=== PATIENT | female | born 1960 ===

== ENCOUNTER 2020-10-27 07:15 | Day surgery (SDC) | payer MEDICARE ==
[2020-10-27] MEDS ORDERED: ZOLOFT25 MG PO (07:45)
[2020-10-27] MEDS ORDERED: ALPRAZOLAM OD0.25 MG PO (07:45)
[2020-10-27] MEDS ORDERED: OMEPRAZOLE20 MG PO (07:45)
[2020-10-27] MEDS ORDERED: VENTOLIN HFA18 GM INH (07:45)
--- NOTE | 2020-10-27 09:29 | NUR ---
10/27/20 0929 Ambreen Alvarado 0918- PT ARRIVES TO PACU AWAKE AND TALKING. PT REPORTS NO PAIN OR NAUSEA. RESP EVEN AND UNLABORED. OXYGEN SAT HIGH 90'S TO 100% ON 2L VIA NC. 0927- OXYGEN TITRATED OFF.
--- NOTE | 2020-10-29 11:54 | OR ---
[facility] [address] [place], [place] [address] Signed DATE OF OPERATION: 10/27/2020 SURGEON: David Freeman MD PREOPERATIVE DIAGNOSIS: Persistent severe diarrhea. POSTOPERATIVE DIAGNOSIS: Normal-appearing colon and distal terminal ileum. PROCEDURE: Total colonoscopy with multiple biopsies. ANESTHESIA: Intravenous sedation, fentanyl 200 mcg and Versed 10 mg. INDICATION: This 60-year-old white woman is a patient of Dr. Jose Hill of [place], [place]. The patient has had nearly a year of persistent rather severe diarrhea. Her stools are poorly formed, and essentially disabling in her day-to-day activities. She has no family history of colon problem specifically inflammatory bowel disease or colon cancer. She has tried Pepto-Bismol with no benefit. Her medications include dicyclomine, omeprazole for reflux, and sertraline. She was prescribed by ne loperamide 2 mg tablets two tablets p.o. b.i.d. more if necessary not to exceed 16 mg daily. This has been markedly helpful to her. She is admitted at this time to undergo colonoscopy to better characterize her problem. She understands the risks of bleeding, infection, perforation, and other unforeseen complications and wished to proceed. FINDINGS: The colon was normal as was the distal terminal ileum except for scattered diverticula of the sigmoid and left colon. These were small diverticula and there was no associated inflammation. She had no sign of neoplasm. Pathology for multiple biopsies is pending. DESCRIPTION OF PROCEDURE: The patient was brought to the endoscopy suite and placed in lateral decubitus position, given intravenous sedation to the point of slurred speech and nystagmus with full cardiopulmonary monitoring. Digital rectal examination was normal. An Olympus video colonoscope was passed in the rectum and manipulated throughout the colon noting diverticular change of the sigmoid and left colon. The scope was Electronically Signed By: DAVID FREEMAN MD 10/29/20 1154 PATIENT NAME: FAM BERUMEN OPERATIVE REPORT DATE OF : 64 REPORT #: [id number] PHYSICIAN: DAVID FREEMAN MD PCP: JOSE HILL MD REPORT IS CONFIDENTIAL AND NOT TO BE RELEASED WITHOUT AUTHORIZATION [facility] [address] [place], [place] [address] Signed ultimately advanced to the cecum. The ileocecal valve was identified and appeared normal overall. With various manipulations, the opening of the ileum could be evaluated, but true intubation of the ileum was not forthcoming. The biopsy forcep was used to biopsy within the ileum, though certainly not very far inside. The scope was withdrawn and biopsies were then taken of the cecum, though it appeared normal. The scope was withdrawn and examination throughout showed no abnormality of inflammation or neoplasm. Biopsies were taken of the transverse, left and rectal areas. The scope was removed. The patient was taken to the recovery room in good condition. CONCLUDING DIAGNOSIS: Grossly normal mucosa of the colon; has diverticular changes unlikely contributing to current symptoms. PLAN: She will continue with loperamide. We will additionally obtain a celiac disease panel and await pathology report especially to assess for occult colitis (lymphocytic colitis, etc.) She will return to see us in a few weeks. David Freeman MD JM/MODL /[id number] cc: Jose Hill MD Copies: JOSE HILL MD ~ Electronically Signed By: DAVID FREEMAN MD 10/29/20 1154 PATIENT NAME: FAM BERUMEN OPERATIVE REPORT DATE OF : 64 REPORT #: [id number] PHYSICIAN: DAVID FREEMAN MD PCP: JOSE HILL MD REPORT IS CONFIDENTIAL AND NOT TO BE RELEASED WITHOUT AUTHORIZATION
--- NOTE | 2020-10-29 14:07 | PATH ---
[facility] [place] [facility] [address] [place], [place] [address] Signed SPECIMEN(S): A CECUM COLON BIOPSY SPECIMEN(S): B ILEUM BIOPSY SPECIMEN(S): C TRANSVERSE COLON BIOPSY SPECIMEN(S): D DESCENDING COLON BIOPSY SPECIMEN(S): E RECTUM SPECIMEN SOURCE: A. CECUM COLON BIOPSY B. ILEUM BIOPSY C. TRANSVERSE COLON BIOPSY D. DESCENDING COLON BIOPSY E. RECTUM CLINICAL HISTORY: Diarrhea. Postop: Diverticulosis. MICROSCOPIC DESCRIPTION: Histologic sections of all submitted blocks are examined by light microscopy. These findings, together with the gross examination, support the pathologic diagnosis. FINAL PATHOLOGIC DIAGNOSIS: A. Cecum, biopsy: - Colonic mucosa with no significant pathologic changes. B. Ileum, biopsy: - Small-bowel mucosa with no significant pathologic changes. C. Colon, transverse, biopsy: - Colonic mucosa with no significant pathologic changes. D. Colon, descending, biopsy: - Colonic mucosa with no significant pathologic changes. E. Rectum, biopsy: - Colonic mucosa with no significant pathologic changes. BRP:[facility]:C2NR GROSS DESCRIPTION: Five specimens are received in five containers, labeled "DC." A. The specimen, labeled "DC, one," and designated on the requisition "cecum biopsy," is received in formalin and consists of 2 bradley soft tissue fragment(s) that measure 0.3 and 0.4 cm in greatest dimension. The specimen is entirely submitted in cassette (A1). B. The specimen, labeled "DC, 2," and designated on the requisition "ileum biopsy," is received in formalin and consists of 3 bradley soft tissue fragment(s) PATIENT NAME: FAM BERUMEN PATHOLOGY DATE OF : 64 REPORT #: [id number] PHYSICIAN: JOANNE WHITTAKER PCP: ROSE MARY HILL MD REPORT IS CONFIDENTIAL AND NOT TO BE RELEASED WITHOUT AUTHORIZATION [facility] [place] [facility] [address] [facility] [place] [place] [address] Signed that measure 0.3-0.5 cm in greatest dimension. The specimen is entirely submitted in cassette (B1). C. The specimen, labeled "DC, 3," and designated on the requisition "transverse biopsy," is received in formalin and consists of 2 bradley soft tissue fragment(s) that measure 0.3 and 0.5 cm in greatest dimension. The specimen is entirely submitted in cassette (C1). D. The specimen, labeled "DC, 4," and designated on the requisition "descending/left biopsy," is received in formalin and consists of 2 bradley soft tissue fragment(s) that measure 0.3 and 0.4 cm in greatest dimension. The specimen is entirely submitted in cassette (D1). E. The specimen, labeled "DC, 5," and designated on the requisition "rectum biopsy," is received in formalin and consists of 4 bradley soft tissue fragment(s) that measure 0.3 up to 0.4 cm in greatest dimension. The specimen is entirely submitted in cassette (E1). AI (under the direct supervision of a pathologist) The Gross Description was prepared using a voice recognition system. The report was reviewed for accuracy; however, sound-alike word errors, addition and/or deletions may occur. If there is any question about this report, please contact Client Services. PERFORMING LABORATORY: The technical component was performed by [employer], [address] [place] [id number] (Commodities Manager: Carmen Forrest MD; CLIA# [id number]). Professional interpretation was performed by [employer], [place] branch, [facility] [address] [address] (CLIA# [id number]). Diagnostician: Prabhakar Rivero MD Pathologist Electronically Signed 10/29/2020 Copies: ~ PATIENT NAME: FAM BERUMEN PATHOLOGY DATE OF : 64 REPORT #: [id number] PHYSICIAN: JOANNE PATHOLOGY PCP: ROSE MARY HILL MD REPORT IS CONFIDENTIAL AND NOT TO BE RELEASED WITHOUT AUTHORIZATION
== END 2020-10-27 10:05 | disposition home or self-care (01) ==
LOC: OPS 07:15 → DS 07:15 → OPS 08:30 → DS 08:30 → OPS 10:05
PROVIDERS: ATTEND Surgery
PROC: 0DBE8ZX Excision of Large Intestine, Via Natural or Artificial Opening Endoscopic, Diagnostic (ICD-10-PCS; principal; 2020-10-27 08:30)
DX: R19.7 Diarrhea, unspecified (principal); K57.30 Diverticulosis of large intestine without perforation or abscess without bleeding; I10 Essential (primary) hypertension; K21.9 Gastro-esophageal reflux disease without esophagitis; T14.90XD Injury, unspecified, subsequent encounter
CPT/HCPCS: 36415; 82784; 83516; 99153; G0500; J2250; J3010; J7121